=== PATIENT | male | born 1995 | race Caucasian/White ===

== ENCOUNTER 2019-03-29 18:33 | Observation (INO) ==
[2019-03-29] MEDS ORDERED: KETOROLAC TROMETHAMINE 15 MG/ML VIAL IV STA (18:53)
[2019-03-29] MEDS ORDERED: METOCLOPRAMIDE HCL INJ 5 MG/ML 2 ML VIAL IV STA (18:53)
[2019-03-29] MEDS ORDERED: FAMOTIDINE 20MG IV PUSH 20 MG/5 ML SYR IV STA (18:53)
[2019-03-29 18:58] LABS: Basophils # (auto) 0.02 K/uL (0-0.2); Basophils % (auto) 0.2 %; Eosinophils # (auto) 0.01 K/uL (0-0.5); Eosinophils % (auto) 0.1 %; Hematocrit (blood only) 44.7 % (42-52); Hemoglobin 15.7 g/dL (14.0-18.0); Immature Granulocytes # (auto) 0.02 K/uL (0.00-0.02); Immature Granulocytes % (auto) 0.2 %; Lymphocytes # (auto) 1.34 K/uL (1.2-3.4); Lymphocytes % (auto) 11.9 %; Mean Corpuscular Hemoglobin 29.5 pg (25-34); Mean Corpuscular Hgb Conc 35.1 g/dL (32-36); Mean Corpuscular Volume 83.9 fL (80-100); Mean Platelet Volume 10.9 fL (7.4-10.4); Monocytes # (auto) 0.57 K/uL (0.11-0.59); Monocytes % (auto) 5.1 %; Neutrophils # (auto) 9.28 K/uL (1.4-6.5); Neutrophils % (auto) 82.5 %; Platelet Count 285 K/uL (130-400); RDW Coefficient of Variation 12.7 % (11.5-14.5); RDW Standard Deviation 38.2 fL (36.4-46.3); Red Blood Count 5.33 M/uL (4.7-6.1); White Blood Count 11.24 K/uL (4.8-10.8)
[2019-03-29] MEDS ORDERED: SODIUM CHLORIDE 0.9% 1000ML 1,000 ML IV SCH (19:00)
[2019-03-29 19:10] LABS: INR 1.1 (0.9-1.1)
[2019-03-29 19:15] LABS: Albumin Level 4.9 gm/dl (3.4-5.0); BUN Creatinine Ratio 10.9 (10-20); Calcium 9.9 mg/dl (8.5-10.1); Creatinine Clr Calc Pharmacy 84.9 ml/min; Est GFR (African American) 83.7; Est GFR (Non-African American) 72.2; Magnesium 1.7 mg/dl (1.8-2.4)
[2019-03-29 19:18] LABS: Albumin Globulin Ratio 1.3 (0.9-2); Bilirubin,Total 0.8 mg/dl (0.2-1); Globulin 3.7 gm/dl (2.5-4.0); Total Protein 8.6 gm/dl (6.4-8.2)
[2019-03-29] MEDS ORDERED: POTASSIUM CHLORIDE / WTR 10 MEQ/100 ML PLCT IV ONE ×2 (19:42→21:59)
[2019-03-29] MEDS ORDERED: MAGNESIUM SULFATE / D5W 1 GM/100 ML BAG IV ONE ×2 (19:42→21:59)
[2019-03-29] MEDS ORDERED: METOCLOPRAMIDE HCL INJ 5 MG/ML 2 ML VIAL IM STA (20:28)
[2019-03-29] MEDS ORDERED: SODIUM CHLORIDE 0.9% 1000ML 1,000 ML IV ONE (21:59)
[2019-03-29] MEDS ORDERED: ONDANSETRON INJ 2 MG/ML 2 ML VIAL IV STA (21:59)
[2019-03-30] MEDS ORDERED: PROCHLORPERAZINE 2 ML IV ONE (00:34)
[2019-03-30] MEDS ORDERED: LACTATED RINGER'S 1,000 ML IV ONE (00:34)
[2019-03-30] MEDS ORDERED: POTASSIUM CHLORIDE / WTR 10 MEQ/100 ML PLCT IV ONE (00:35)
[2019-03-30] MEDS ORDERED: MAGNESIUM SULFATE / D5W 1 GM/100 ML BAG IV ONE (00:35)
--- NOTE | 2019-03-30 00:37 | Emergency Department Note ---
Entered by Camille Stanley acting as a scribe for Stanislaw Hamilton M.D. History of Present Illness General Chief complaint: Vomiting Stated complaint: WITHDRAWAL Time Seen by Provider: 03/29/19 18:47 Source: patient Limitations: no limitations History of Present Illness Onset (ago): hour(s) (this morning) Location: abdomen Pain Consistency: + other (persistent) Maximum Pain Intensity: 10 Quality: + other (vomiting) Relieved By: + none Associated symptoms: + other (abdominal pain) The patient is a 23 year old male who presents to the Emergency Room with complaints of persistent vomiting that began this morning. He states that he is going through withdrawal, noting that he last had opioids yesterday at 19:00. The patient reports that he began rehabilitation at [facility] yesterday. He complains of vomiting bile and generalized abdominal pain. The patient notes that Phenergan, Zofran, and Compazine provided no relief. Allergies Allergy/AdvReac Type Severity Reaction Status Date / Time No Known Allergies Allergy Unverified 03/29/19 19:33 Past Med/Surg History Medical History Opioid abuse Social History Feels Safe at Home: Yes Smoking Status: Current every day smoker Review of Systems See HPI for pertinent positives & negatives. and A total of 10 systems reviewed and were otherwise negative Physical Exam Vital Signs Vital Signs - 24 hr 03/29/19 18:35 03/29/19 19:03 03/29/19 20:01 Temperature 36.9 C Temperature Source Oral Sepsis Recent Fever Within 48 Hours No Sepsis New/Unexplained Change in Mental Status No Sepsis Action Taken by Nursing No Action Required Pulse Rate 88 Pulse Rate [Finger] 54 L Pulse Rhythm [Finger] Pulse Strength [Finger] Respiratory Rate 20 14 Respiratory Effort / Characteristics Non-Labored Spontaneous Respiratory Depth Normal Respiratory Pattern Regular Blood Pressure 126/86 Blood Pressure [Left Arm] 131/71 Blood Pressure Mean 99 Blood Pressure Mean [Left Arm] 91 Blood Pressure Position Standing Blood Pressure Position [Left Arm] Pulse Oximetry 99 98 Oxygen Delivery Method Room Air Room Air Room Air 03/29/19 21:56 03/29/19 23:44 Temperature Temperature Source Sepsis Recent Fever Within 48 Hours Sepsis New/Unexplained Change in Mental Status Sepsis Action Taken by Nursing Pulse Rate Pulse Rate [Finger] 54 L 63 Pulse Rhythm [Finger] Regular Pulse Strength [Finger] Normal Respiratory Rate 24 16 Respiratory Effort / Characteristics Non-Labored Spontaneous Respiratory Depth Normal Respiratory Pattern Blood Pressure Blood Pressure [Left Arm] 141/71 H 160/84 H Blood Pressure Mean Blood Pressure Mean [Left Arm] 94 109 Blood Pressure Position Blood Pressure Position [Left Arm] Lying Pulse Oximetry 99 96 Oxygen Delivery Method Room Air Room Air GENERAL: Awake, alert, uncomfortable-appearing holding abdomen HENT: Normocephalic, atraumatic. EYES: Normal conjunctiva. Sclera non-icteric. NECK: Supple. No nuchal rigidity. RESPIRATORY: Clear to auscultation. No wheezes. Normal respiratory effort. CARDIAC: Normal rate. Normal rhythm. Extremities warm and well perfused. GI: Soft, non-distended. No tenderness to palpation. No rebound or guarding. No masses. RECTAL: Deferred. MUSCULOSKELETAL: Atraumatic. Chest examination reveals no tenderness. LOWER EXTREMITIES: Calves are equal size bilaterally and non-tender. No edema NEURO: Normal sensorium. No sensory or motor deficits noted. No facial droop. SKIN: Warm and dry. No rash or jaundice noted. Course 1850: The patient was evaluated in room C03. A complete history and physical exam was performed. 2023: I updated the patient on the results. 3: The patient is doing a PO trial. 0002: The patient states that he feels improved and he would like to return to [facility]. 0034: The patient began vomiting again. 0040: I spoke with Dr. Sam, [facility] hospitalist, about the patient's case. He will further evaluate the patient. Administered Medications Lactated Ringer's (Lr) 1,000 mls @ 999 mls/hr IV .Q1H1M ONE Stop: 03/30/19 01:34 Last Admin: 03/30/19 00:44 Dose: 999 mls/hr Documented by: [id number] Magnesium Sulfate/Dextrose (Magnesium Sulfate / D5w) 1 gm in 100 mls @ 100 mls/hr IV ONE ONE Stop: 03/30/19 01:34 Last Admin: 03/30/19 00:44 Dose: 100 mls/hr Documented by: [id number] Discontinued Medications Famotidine (Pepcid 20mg Iv Push) 20 mg in 5 mls @ 2.5 mls/min IV NOW STA Stop: 03/29/19 18:54 Last Admin: 03/29/19 19:02 Dose: 2.5 mls/min Documented by: [id number] Sodium Chloride (Nss 1000ml) 1,000 mls @ 999 mls/hr IV .Q1H1M UBALDO Stop: 03/29/19 20:00 Last Infusion: 03/29/19 20:03 Dose: 0 mls/hr Documented by: [id number] Admin: 03/29/19 19:02 Dose: 999 mls/hr Documented by: [id number] Potassium Chloride (K Guru / Wtr) 10 meq in 100 mls @ 100 mls/hr IV ONE ONE Stop: 03/29/19 20:41 Last Infusion: 03/29/19 21:05 Dose: 0 mls/hr Documented by: [id number] Admin: 03/29/19 20:05 Dose: 100 mls/hr Documented by: [id number] Magnesium Sulfate/Dextrose (Magnesium Sulfate / D5w) 1 gm in 100 mls @ 100 mls/hr IV ONE ONE Stop: 03/29/19 20:41 Last Infusion: 03/29/19 21:05 Dose: 0 mls/hr Documented by: [id number] Admin: 03/29/19 20:05 Dose: 100 mls/hr Documented by: [id number] Magnesium Sulfate/Dextrose (Magnesium Sulfate / D5w) 1 gm in 100 mls @ 100 mls/hr IV ONE ONE Stop: 03/29/19 22:58 Last Infusion: 03/29/19 23:42 Dose: 0 mls/hr Documented by: [id number] Admin: 03/29/19 22:35 Dose: 100 mls/hr Documented by: [id number] Potassium Chloride (K Guru / Wtr) 10 meq in 100 mls @ 100 mls/hr IV ONE ONE Stop: 03/29/19 22:58 Last Infusion: 03/29/19 23:41 Dose: 0 mls/hr Documented by: [id number] Admin: 03/29/19 22:35 Dose: 100 mls/hr Documented by: [id number] Sodium Chloride (Nss 1000ml) 1,000 mls @ 999 mls/hr IV .Q1H1M ONE Stop: 03/29/19 22:59 Last Infusion: 03/29/19 23:42 Dose: 0 mls/hr Documented by: [id number] Admin: 03/29/19 22:30 Dose: 999 mls/hr Documented by: [id number] Prochlorperazine (Compazine) 2 mls @ 1 mls/min IV ONE ONE Stop: 03/30/19 00:35 Last Admin: 03/30/19 00:44 Dose: 1 mls/min Documented by: [id number] Ketorolac Tromethamine (Toradol) 15 mg IV NOW STA Stop: 03/29/19 18:54 Last Admin: 03/29/19 19:02 Dose: 15 mg Documented by: [id number] Metoclopramide HCl (Reglan) 10 mg IV NOW STA Stop: 03/29/19 18:54 Last Admin: 03/29/19 19:02 Dose: 10 mg Documented by: [id number] Metoclopramide HCl (Reglan) 10 mg IM NOW STA Stop: 03/29/19 20:29 Last Admin: 03/29/19 20:39 Dose: 10 mg Documented by: [id number] Ondansetron HCl (Zofran) 4 mg IV NOW STA Stop: 03/29/19 22:00 Last Admin: 03/29/19 22:31 Dose: 4 mg Documented by: [id number] Medical Decision Making Differential Diagnosis Etiologies such as gastroenteritis, food borne illness, infections, appendicitis, diverticulitis, inflammatory bowel disease, obstruction, GI bleed, biliary pathology, cardiac process, intracranial process, as well as others were entertained. Medical Records Attestation: I reviewed the patient's medical records. Home Medications Current Medication List: was personally reviewed by me Laboratory Data Attestation: I reviewed the patient's lab results. Result diagrams: 03/29/19 18:51 03/29/19 18:51 Lab Results 03/29/19 03/29/19 03/29/19 Range/Units 18:51 18:51 18:51 WBC 11.24 H (4.8-10.8) K/uL RBC 5.33 (4.7-6.1) M/uL Hgb 15.7 (14.0-18.0) g/dL Hct 44.7 (42-52) % MCV 83.9 (80-100) fL MCH 29.5 (25-34) pg MCHC 35.1 (32-36) g/dL RDW Std Deviation 38.2 (36.4-46.3) fL RDW Coeff of Ada 12.7 (11.5-14.5) % Plt Count 285 (130-400) K/uL MPV 10.9 H (7.4-10.4) fL Immature Gran % (Auto) 0.2 % Neut % (Auto) 82.5 % Lymph % (Auto) 11.9 % [place] % (Auto) 5.1 % Eos % (Auto) 0.1 % Baso % (Auto) 0.2 % Immature Gran # (Auto) 0.02 (0.00-0.02) K/uL Neut # (Auto) 9.28 H (1.4-6.5) K/uL Lymph # (Auto) 1.34 (1.2-3.4) K/uL [place] # (Auto) 0.57 (0.11-0.59) K/uL Eos # (Auto) 0.01 (0-0.5) K/uL Baso # (Auto) 0.02 (0-0.2) K/uL PT 11.0 (9.0-12.0) Seconds INR 1.1 (0.9-1.1) Sodium 139 (136-145) mmol/L Potassium 3.0 L (3.5-5.1) mmol/L Chloride 103 (98-107) mmol/L Carbon Dioxide 27 (21-32) mmol/L Anion Gap 9.0 (3-11) BUN 15 (7-18) mg/dl Creatinine 1.37 (0.6-1.4) mg/dl Est Cr Clr Drug Dosing 84.9 ml/min Est GFR ( Amer) 83.7 Est GFR (Non-Af Amer) 72.2 BUN/Creatinine Ratio 10.9 (10-20) Glucose 117 H (70-99) mg/dl Calcium 9.9 (8.5-10.1) mg/dl Magnesium 1.7 L (1.8-2.4) mg/dl Total Bilirubin 0.8 (0.2-1) mg/dl AST 10 L (15-37) U/L ALT 17 (12-78) U/L Alkaline Phosphatase 83 (45-117) U/L Total Protein 8.6 H (6.4-8.2) gm/dl Albumin 4.9 (3.4-5.0) gm/dl Globulin 3.7 (2.5-4.0) gm/dl Albumin/Globulin Ratio 1.3 (0.9-2) Lipase 128 (73-393) U/L ECG Data Attestation: I personally reviewed and interpreted this ECG as follows: Indication: + vomiting Rate (beats per minute): 61 Rhythm: + sinus rhythm ECG Findings: + Other (no ectopy, no ST elevation, no ST depression, incomplete RBBB, QTC is normal) Blood Pressure Blood Pressure Findings: Elevated blood pressure Blood Pressure Disposition: further management by hospitalist LATOYA Narrative Patient is a patient is a 23-year-old gentleman from [facility] relocated overnight for detox from opioids at [facility]. Has explained severe abdominal pain with nausea and vomiting today. Last illicit drug use of fentanyl 7 PM yesterday evening. No trauma reported. Vomiting multiple times refractory to combinations of Compazine Phenergan and Zofran at the facility. Pain but no significant abdominal tenderness. Patient has received some amount of Suboxone there but he says is having difficulty keeping anything down. Mild been reported with vomiting. Patient given IV fluids as well as Reglan and Pepcid. EKG was obtained to look for interval abnormalities as well as basic laboratory studies look for any possible leukocytosis, kidney dysfunction, left foot abnormality, hepatitis, or pancreatitis. No evidence of acute hepatitis or pancreatitis. Hypokalemia and hypomagnesemia noted. IV repletion ordered. Leukocytosis of 11.2 is likely stress related. No evidence of significant renal dysfunction. Oral trial attempted after Zofran and Reglan patient then vomited up this water. Given additional Zofran. Patient's pain and nausea have somewhat improved at this point. Again I doubt intra-abdominal complications appendicitis or cholecystitis or perforation. On reassessment after more than 5 hours here the patient had improvement of his symptoms no longer any abdominal pain or nausea tolerated oral intake with liquids here. Discussed with him and he felt comfortable with discharge back to [facility] for continued rehab ther apies. Will send with a prescription for additional potassium supplementation. He does have orders for withdrawal medications at the facility and antiemetics that they may continue to utilize. Patient was in agreement with this plan. Over the next 45 minutes to hour the patient then began to vomit again up the water he just taken. Given additional antiemetics and given his failure to maintain oral intake feel that admission for continued antiemetic therapy and hydration is indicated at this time. Hospitalist was contacted. Impression & Plan Nausea & vomiting, Acute hypokalemia, Hypomagnesemia, Withdrawal from opioids Discharge Plan Visit Data Chief Complaint: Vomiting Stated Complaint: WITHDRAWAL ED Provider: Stanislaw Hamilton Discharge Problem: Nausea & vomiting, Acute hypokalemia, Hypomagnesemia, Withdrawal from opioids Patient Disposition: Being Evaluated by Hospitalist Condition: Good Discharge Instructions Keny/Other Patient Handouts: ED Withdrawal Narcotic Forms Stand Alone Forms: My [facility] Referrals Referrals: PCP,NO [Primary Care Provider] - Discharge Problem: Nausea & vomiting Qualifiers: Vomiting type: unspecified Vomiting Intractability: non-intractable Qualified Code(s): R11.2 - Nausea with vomiting, unspecified The scribe's documentation has been prepared under my direction and personally reviewed by me in its entirety. I confirm that the note above accurately reflects all work, treatment, procedures, and medical decision making performed by me.
[2019-03-30] MEDS ORDERED: ACETAMINOPHEN 325 MG TAB PO PRN (02:21)
--- NOTE | 2019-03-30 03:17 | History & Physical Report ---
Date of Service March 30, 2019 Assessment & Plan (1) Acute hypokalemia: Replaced in the ED Continue with IVF with potassium overnight re-check level in am (2) Hypomagnesemia: Replaced in the ED Re-check level in the am. (3) Nausea & vomiting: Ordered IV Phenergan and IV Zofran Continue IVF Can start with clear liquids when feeling better then advance to regular as tolerated. (4) Withdrawal from opioids: I added Clonidine When stable from electrolytes and tolerating orals, may be discharged back to [facility]. History of Present Illness 23 y/o male presented to the ED from [facility] with persistent vomiting from opioid withdrawal. He was given oral therapies at the facility with no relief. He has diffuse abdominal pain. He declines having chest pain, SOB, cough, F/C, or diarrhea. He is 30 hours from his last use. Primary Care Provider: NO PCP Allergies Allergy/AdvReac Type Severity Reaction Status Date / Time No Known Allergies Allergy Unverified 03/29/19 19:33 Past Med/Surg History Medical History Opioid abuse Social History Preferred Language: Finnish Communication Ability: Effective Glue Bone Crusher Required: No Beliefs That Will Affect Care: None Current Living Situation: Rehab Feels Safe at Home: Yes Safety Concerns: Feels Safe At This Time Smoking Status: Current every day smoker Tobacco Type: cigarettes ; Cigarettes Per Day: 20 ; Tobacco Cessation Education Requested by Patient: No Hx Alcohol Use: No Hx Substance Use: Yes substance use type: heroin and other Substance Use Type Other:: fentanyl Last Used Substance: Days (ago) Last Used Substance Other:: 1 day ago Review of Systems Review of Systems: All systems reviewed & are unremarkable except as noted in HPI & below Physical Exam Physical Exam: General- adult male in mild distress from withdrawal symptoms. Head- atraumatic Eyes- PERRL, EOMI, anicteric ENT- oropharynx clear Neck- supple, no JVD, no adenopathy, no thyromegaly. Lungs- CTA b/l no R/R/W Heart- regular rhythm; no murmur, no gallop, no rub appreciated Abdomen- normal bowel sounds, soft, nontender. 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 Skin- warm & dry Results & Data Vital Signs (Past 12 Hours) Vital Signs Temp Pulse Pulse Resp BP BP Pulse Ox 03/30/19 02:10 37.6 C H 66 16 133/74 99 03/30/19 01:55 50 L 16 151/72 H 96 03/29/19 23:44 63 16 160/84 H 96 03/29/19 21:56 54 L 24 141/71 H 99 03/29/19 20:01 54 L 14 131/71 98 03/29/19 18:35 36.9 C 88 20 126/86 99 Laboratory Results Laboratory Results WBC 11.24 K/uL (4.8-10.8) H 03/29/19 18:51 RBC 5.33 M/uL (4.7-6.1) 03/29/19 18:51 Hgb 15.7 g/dL (14.0-18.0) 03/29/19 18:51 Hct 44.7 % (42-52) 03/29/19 18:51 MCV 83.9 fL (80-100) 03/29/19 18:51 MCH 29.5 pg (25-34) 03/29/19 18:51 MCHC 35.1 g/dL (32-36) 03/29/19 18:51 RDW Std Deviation 38.2 fL (36.4-46.3) 03/29/19 18:51 RDW Coeff of Ada 12.7 % (11.5-14.5) 03/29/19 18:51 Plt Count 285 K/uL (130-400) 03/29/19 18:51 MPV 10.9 fL (7.4-10.4) H 03/29/19 18:51 Immature Gran % (Auto) 0.2 % 03/29/19 18:51 Neut % (Auto) 82.5 % 03/29/19 18:51 Lymph % (Auto) 11.9 % 03/29/19 18:51 [place] % (Auto) 5.1 % 03/29/19 18:51 Eos % (Auto) 0.1 % 03/29/19 18:51 Baso % (Auto) 0.2 % 03/29/19 18:51 Immature Gran # (Auto) 0.02 K/uL (0.00-0.02) 03/29/19 18:51 Neut # (Auto) 9.28 K/uL (1.4-6.5) H 03/29/19 18:51 Lymph # (Auto) 1.34 K/uL (1.2-3.4) 03/29/19 18:51 [place] # (Auto) 0.57 K/uL (0.11-0.59) 03/29/19 18:51 Eos # (Auto) 0.01 K/uL (0-0.5) 03/29/19 18:51 Baso # (Auto) 0.02 K/uL (0-0.2) 03/29/19 18:51 PT 11.0 Seconds (9.0-12.0) 03/29/19 18:51 INR 1.1 (0.9-1.1) 03/29/19 18:51 Sodium 139 mmol/L (136-145) 03/29/19 18:51 Potassium 3.0 mmol/L (3.5-5.1) L 03/29/19 18:51 Chloride 103 mmol/L (98-107) 03/29/19 18:51 Carbon Dioxide 27 mmol/L (21-32) 03/29/19 18:51 Anion Gap 9.0 (3-11) 03/29/19 18:51 BUN 15 mg/dl (7-18) 03/29/19 18:51 Creatinine 1.37 mg/dl (0.6-1.4) 03/29/19 18:51 Est Cr Clr Drug Dosing 84.9 ml/min 03/29/19 18:51 Est GFR ( Amer) 83.7 03/29/19 18:51 Est GFR (Non-Af Amer) 72.2 03/29/19 18:51 BUN/Creatinine Ratio 10.9 (10-20) 03/29/19 18:51 Glucose 117 mg/dl (70-99) H 03/29/19 18:51 Calcium 9.9 mg/dl (8.5-10.1) 03/29/19 18:51 Magnesium 1.7 mg/dl (1.8-2.4) L 03/29/19 18:51 Total Bilirubin 0.8 mg/dl (0.2-1) 03/29/19 18:51 AST 10 U/L (15-37) L 03/29/19 18:51 ALT 17 U/L (12-78) 03/29/19 18:51 Alkaline Phosphatase 83 U/L (45-117) 03/29/19 18:51 Total Protein 8.6 gm/dl (6.4-8.2) H 03/29/19 18:51 Albumin 4.9 gm/dl (3.4-5.0) 03/29/19 18:51 Globulin 3.7 gm/dl (2.5-4.0) 03/29/19 18:51 Albumin/Globulin Ratio 1.3 (0.9-2) 03/29/19 18:51 Lipase 128 U/L (73-393) 03/29/19 18:51 Code Status & VTE Plan VTE Prophylaxis Plan VTE Prophylaxis will be ordered: Yes PG Care Time/CCT Total # of Minutes Spent Total Time Spent with Patient: Total time spent is greater than 50% in coordination of care (as documented) at patient's floor/unit and/or counseling patient: (1) Nausea & vomiting Vomiting Intractability: non-intractable Vomiting type: unspecified Qualified Code(s): R11.2 - Nausea with vomiting, unspecified
[2019-03-30 03:26] LABS: Appearance Urine Turbid (Clear); Bacteria Urine Automated Negative (Negative); Bilirubin Urine Negative (Negative); Blood Urine Negative (Negative); Color Urine Yellow; Epithelial Cell Urine Auto 20-30 /lpf (0-5); Glucose Urine UA Negative (Negative); Ketones Urine 1+ (Negative); Leukocyte Esterase Urine Trace (Negative); Nitrite Urine Negative (Negative); Protein Urine Negative (Negative); Specific Gravity Urine 1.024 (1.000-1.030); Urobilinogen Urine Negative (Negative)
[2019-03-30] MEDS: SODIUM CHLOR 0.45% + 20MEQ KCL 20 MEQ/1,000 ML BAG IV SCH ×3 (03:26→18:34)
[2019-03-30 03:46] LABS: Amphetamines+Metham, Urine Neg (Neg); Barbiturates, Urine Neg (Neg); Benzodiazepine, Urine Pos (Neg); Cocaine, Urine Pos (Neg); MDMA (Ecstacy), Urine Neg (Neg); Methadone, Urine Neg (Neg); Opiate, Urine Pos (Neg); Phencyclidine, Urine Neg (Neg)
[2019-03-30] MEDS: ONDANSETRON INJ 2 MG/ML 2 ML VIAL IV PRN ×2 (05:28→13:12)
[2019-03-30 07:24] LABS: Hematocrit (blood only) 41.4 % (42-52); Hemoglobin 14.6 g/dL (14.0-18.0); Mean Corpuscular Hemoglobin 29.7 pg (25-34); Mean Corpuscular Hgb Conc 35.3 g/dL (32-36); Mean Corpuscular Volume 84.1 fL (80-100); Mean Platelet Volume 11.1 fL (7.4-10.4); Platelet Count 270 K/uL (130-400); RDW Standard Deviation 39.4 fL (36.4-46.3); Red Blood Count 4.92 M/uL (4.7-6.1); White Blood Count 14.18 K/uL (4.8-10.8)
[2019-03-30] MEDS: PROMETHAZINE HCL 25 MG in SODIUM CHLORIDE 0.9% 50 ML IV PRN (07:26)
[2019-03-30 08:02] LABS: BUN Creatinine Ratio 13.2 (10-20); Creatinine Clr Calc Pharmacy 123.2 ml/min; Est GFR (African American) 130.2; Est GFR (Non-African American) 112.4; Magnesium 2.2 mg/dl (1.8-2.4); Potassium 3.5 mmol/L (3.5-5.1)
[2019-03-30] MEDS ORDERED: FAMOTIDINE 10 MG/ML 2ML VIAL IV SCH (09:00)
[2019-03-30] MEDS: KETOROLAC TROMETHAMINE 15 MG/ML VIAL IV PRN ×2 (09:27→23:45)
[2019-03-30] MEDS: ENOXAPARIN INJ 40 MG/0.4 ML SYR SQ SCH (09:28)
[2019-03-30] MEDS: cloNIDine HCl 0.1 MG TAB PO SCH ×4 (09:28→19:55)
[2019-03-30] MEDS: FAMOTIDINE 20 MG in SYRINGE 3 ML IV SCH ×2 (10:12→21:31)
[2019-03-30] MEDS: PROCHLORPERAZINE 10 MG in SYRINGE 8 ML IV PRN (11:50)
--- NOTE | 2019-03-30 13:50 | Hospitalist Progress Note ---
Date of Service March 30, 2019 Assessment & Plan (1) Acute hypokalemia: Resolving. Potassium is 3.5 now. Continue replenishment with NSS 20 meq K. Continue monitoring potassium (2) Hypomagnesemia: Resolved (3) Nausea & vomiting: Continue IV Phenergan, IV Zofran, and Compazine. Supportive care Continue IVF Advance diet as tolerated when patient ready (4) Withdrawal from opioids: Continue clonidine When stable from electrolytes and tolerating orals, may be discharged back to [facility]. Consult pain management Subjective Pt seen and examined at the bedside. Patient continues to have nausea and vomiting despite of having Zofran and Phenergan given intermittently. Compazine is started as well. Patient said that he was using Suboxone before and that helps him to alleviate the symptoms of opiate withdrawal. Patient denies headache, fever, chills, chest pain, dysuria hematuria. Review of Systems Review of Systems: All systems reviewed & are unremarkable except as noted in HPI & below Physical Exam Constitutional: WD/WN, vitals as above well developed and + acute distress (Vomiting) Eyes: PERRL, conjunctivae normal, anicteric sclerae ENMT: external ear and nose normal, oropharynx normal Respiratory: normal respiratory effort, lungs clear to auscultation Cardiovascular: RRR, no murmur, no edema Gastrointestinal (Abdomen): normal bowel sounds, soft, nontender, no hepatosplenomegaly Musculoskeletal: no cyanosis or clubbing, extremities motor strength 5/5 Skin: no rashes, warm and dry Neurologic: patellar DTR's 2+ bilat, sensation intact Psychiatric: A+Ox3, euthymic affect Lymphatic: no cervical or axillary lymphadenopathy Results & Data Vital Signs (Past 12 Hours) Vital Signs Temp Pulse Resp BP Pulse Ox 03/30/19 12:02 78 118/66 03/30/19 09:12 57 L 03/30/19 07:26 37.6 C H 41 L 18 169/82 H 97 03/30/19 02:10 37.6 C H 66 16 133/74 99 03/30/19 01:55 50 L 16 151/72 H 96 PG Care Time/CCT Total # of Minutes Spent Total Time Spent with Patient: Total time spent is greater than 50% in coordination of care (as documented) at patient's floor/unit and/or counseling patient: (1) Nausea & vomiting Vomiting Intractability: non-intractable Vomiting type: unspecified Qualified Code(s): R11.2 - Nausea with vomiting, unspecified
[2019-03-31 00:11] VITALS: TEMP 97.9
[2019-03-31] MEDS: SODIUM CHLOR 0.45% + 20MEQ KCL 20 MEQ/1,000 ML BAG IV SCH ×2 (01:50→10:14)
[2019-03-31] MEDS: KETOROLAC TROMETHAMINE 15 MG/ML VIAL IV PRN (05:50)
[2019-03-31] MEDS: ONDANSETRON INJ 2 MG/ML 2 ML VIAL IV PRN (07:31)
[2019-03-31 08:19] VITALS: O2SAT 96
[2019-03-31] MEDS: PROMETHAZINE HCL 25 MG in SODIUM CHLORIDE 0.9% 50 ML IV PRN (08:36)
[2019-03-31 09:28] LABS: Basophils # (auto) 0.01 K/uL (0-0.2); Basophils % (auto) 0.1 %; Eosinophils # (auto) 0.03 K/uL (0-0.5); Eosinophils % (auto) 0.4 %; Hemoglobin 13.8 g/dL (14.0-18.0); Immature Granulocytes # (auto) 0.01 K/uL (0.00-0.02); Immature Granulocytes % (auto) 0.1 %; Lymphocytes # (auto) 1.95 K/uL (1.2-3.4); Mean Corpuscular Hemoglobin 29.3 pg (25-34); Mean Corpuscular Volume 84.9 fL (80-100); Mean Platelet Volume 10.5 fL (7.4-10.4); Monocytes # (auto) 0.66 K/uL (0.11-0.59); Monocytes % (auto) 8.1 %; Neutrophils # (auto) 5.46 K/uL (1.4-6.5); Neutrophils % (auto) 67.3 %; Platelet Count 221 K/uL (130-400); RDW Coefficient of Variation 12.9 % (11.5-14.5); Red Blood Count 4.71 M/uL (4.7-6.1); White Blood Count 8.12 K/uL (4.8-10.8)
[2019-03-31 09:33] LABS: Mean Corpuscular Hgb Conc 34.5 g/dL (32-36)
[2019-03-31] MEDS ORDERED: BUPRENORPHINE/NALOXONE 2/0.5MG 1 TAB PO SCH (09:45)
[2019-03-31 09:46] LABS: Albumin Level 3.8 gm/dl (3.4-5.0); BUN Creatinine Ratio 12.3 (10-20); Calcium 8.7 mg/dl (8.5-10.1); Creatinine Clr Calc Pharmacy 96.7 ml/min; Est GFR (African American) 97.2; Est GFR (Non-African American) 83.9
[2019-03-31] MEDS: PROCHLORPERAZINE 10 MG in SYRINGE 8 ML IV PRN (09:51)
[2019-03-31] MEDS: FAMOTIDINE 20 MG in SYRINGE 3 ML IV SCH (09:52)
[2019-03-31 09:53] LABS: Albumin Globulin Ratio 1.3 (0.9-2); Bilirubin,Total 1.1 mg/dl (0.2-1); Total Protein 6.8 gm/dl (6.4-8.2)
[2019-03-31] MEDS: cloNIDine HCl 0.1 MG TAB PO SCH ×2 (10:06→12:24)
--- NOTE | 2019-03-31 10:36 | XRay Report ---
XR chest 1V portable HISTORY: 23 years-old Male Rule out hemopneumothorax. Status post rib blocks 7, 8 and 9 left side s tatus post left-sided rib nerve blocks. COMPARISON: None available TECHNIQUE: Portable AP view of the chest FINDINGS: Cardiomediastinal and hilar silhouettes are within normal limits. There is no pneumothorax, pleural e ffusion, focal airspace consolidation or overt pulmonary edema. Bones appear normal. No opaque foreig n body. IMPRESSION: No postprocedural pneumothorax. The above report was generated using voice recognition software. It may contain grammatical, syntax o r spelling errors. Electronically signed by: Chito Bowman M.D. 03/31/2019 10:34 AM
[2019-03-31 12:23] VITALS: BP 147/77; PULSE 71
[2019-03-31] MEDS: ENOXAPARIN INJ 40 MG/0.4 ML SYR SQ SCH (12:23)
--- NOTE | 2019-03-31 13:24 | Hospitalist Progress Note ---
Date of Service March 31, 2019 Assessment & Plan (1) Acute hypokalemia: Resolved potassium 4 now (2) Hypomagnesemia: Resolved (3) Nausea & vomiting: Resolved after giving Suboxone. (4) Withdrawal from opioids: Improved after giving a dose of Suboxone. We accessed [facility] and Dr.Gregory Munoz located in [address] [place] [address] at [facility] with phone #[phone] prescribed on March 29, 2019 a dose of 3.14 mg of Suboxone for 7 days supply. Patient was advised to follow-up with Dr. Munoz as soon as possible after this discharge. No medication was given on the discharge. No opiates or narcotics were given to patient on the discharge. Subjective Pt seen and examined at the bedside. Patient continues to have nausea and vomiting despite of having Zofran and Phenergan given intermittently. Compazine was given as well but did not help much with nausea and vomiting. Patient said that he is planning to leave [facility] to go to his rehab to obtain Suboxone. The case was discussed with pain management to Dr. Mcgovern and be provided patient with Suboxone while in the hospital but recommended him to go to the rehab as soon as possible and continue rehabilitation from opioid withdrawal. Patient denies headache, fever, chills, chest pain, dysuria hematuria. After receiving Suboxone patient felt better and he stated that he would continue with the rehab and he would like to be discharged home. We accessed [facility] and Dr.Gregory Munoz located in [address] [place] [address] at [facility] with phone #[phone] prescribed on March 29, 2019 a dose of 3.14 mg of Suboxone for 7 days supply. Patient was advised to follow-up with Dr. Munoz as soon as possible after this discharge. No medication was given on the discharge. No opiates or narcotics were given to patient on the discharge. Review of Systems Review of Systems: All systems reviewed & are unremarkable except as noted in HPI & below Physical Exam Constitutional: WD/WN, vitals as above well developed and + acute distress (Vomiting) Eyes: PERRL, conjunctivae normal, anicteric sclerae ENMT: external ear and nose normal, oropharynx normal Respiratory: normal respiratory effort, lungs clear to auscultation Cardiovascular: RRR, no murmur, no edema Gastrointestinal (Abdomen): normal bowel sounds, soft, nontender, no hepatosplenomegaly Musculoskeletal: no cyanosis or clubbing, extremities motor strength 5/5 Skin: no rashes, warm and dry Neurologic: patellar DTR's 2+ bilat, sensation intact Psychiatric: A+Ox3, euthymic affect Lymphatic: no cervical or axillary lymphadenopathy Results & Data Vital Signs (Past 12 Hours) Vital Signs Temp Pulse Resp BP Pulse Ox 03/31/19 12:22 71 147/77 H 03/31/19 08:00 36.6 C 46 L 18 100/51 L 96 PG Care Time/CCT Total # of Minutes Spent Total Time Spent with Patient: Total time spent is greater than 50% in coordination of care (as documented) at patient's floor/unit and/or counseling patient: (1) Nausea & vomiting Vomiting Intractability: non-intractable Vomiting type: unspecified Qualified Code(s): R11.2 - Nausea with vomiting, unspecified
--- NOTE | 2019-03-31 16:37 | Discharge Summary ---
Date of Service March 31, 2019 Admission HPI Per Admitting Provider 23 y/o male presented to the ED from [facility] with persistent vomiting from opioid withdrawal. He was given oral therapies at the facility with no relief. He has diffuse abdominal pain. He declines having chest pain, SOB, cough, F/C, or diarrhea. He is 30 hours from his last use. Primary Care Provider: NO PCP Admission Exam Per Admitting Provider General- adult male in mild distress from withdrawal symptoms. Head- atraumatic Eyes- PERRL, EOMI, anicteric ENT- oropharynx clear Neck- supple, no JVD, no adenopathy, no thyromegaly. Lungs- CTA b/l no R/R/W Heart- regular rhythm; no murmur, no gallop, no rub appreciated Abdomen- normal bowel sounds, soft, nontender. 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 Skin- warm & dry Principal Diagnosis none Discharge Exam Constitutional WD/WN, vitals as above well developed and + acute distress (Vomiting) Eyes PERRL, conjunctivae normal, anicteric sclerae ENMT external ear and nose normal, oropharynx normal Respiratory normal respiratory effort, lungs clear to auscultation Cardiovascular RRR, no murmur, no edema Gastrointestinal (Abdomen) normal bowel sounds, soft, nontender, no hepatosplenomegaly Musculoskeletal no cyanosis or clubbing, extremities motor strength 5/5 Skin no rashes, warm and dry Neurologic patellar DTR's 2+ bilat, sensation intact Psychiatric A+Ox3, euthymic affect Lymphatic no cervical or axillary lymphadenopathy Discharge Data Allergies Allergy/AdvReac Type Severity Reaction Status Date / Time No Known Allergies Allergy Unverified 03/29/19 19:33 Consultations 03/30/19 00:41 ED Decision to Admit Stat Hospital Course (1) Acute hypokalemia: Resolved potassium 4 now (2) Hypomagnesemia: Resolved (3) Nausea & vomiting: Resolved after giving Suboxone. (4) Withdrawal from opioids: Improved after giving a dose of Suboxone. We accessed [facility] and Dr.Gregory Munoz located in [facility] [address] at [facility] with phone #[phone] prescribed on March 29, 2019 a dose of 3.14 mg of Suboxone for 7 days supply. Patient was advised to follow-up with Dr. Munoz as soon as pos sible after this discharge. No medication was given on the discharge. No opiates or narcotics were given to patient on the discharge. Total Time Total Time Spent Total Time Spent (In Minutes): over 30 min Discharge Plan Discharge Items Patient Disposition: Transfer [facility] Reason For Visit: INTRACTABLE VOMITING, OPIATE WITHDRAWAL Discharge Diagnosis: Opiate withdrawal Condition on Discharge: Good Health Concerns: addiction to heroin Activity: As commented below Lifting: Gradually increase as tolerated Non-emergency contact: Primary Care Provider Call non-emergency contact if: you have any medication questions, your symptoms worsen, your pain is not controlled, your pain is worsening, your pain is unusual for you, your pain is concerning for you, you have a fever, your temperature is above 101, your temperature is above 101.5 and your wound has increased redness Follow-up/Referrals: PCP,NO [Primary Care Provider] - Diet: Regular Addtl Attending Provider Instructions: Please follow up with Dr. Pradeep Munoz this week. [facility] Pending Studies at Discharge: No Stand-Alone Forms: My [facility] Skilled Items DNR: No Lines: None Urinary Catheter: No Medications and DC Order Discharge Orders: Discharge Order (Routine); Ordered 03/31/19 Ordered By: Sisi Young Admission Data Admit Date/Time: 03/30/19 01:32 Attending Provider: Sisi Young Admit Provider: Joni Sam Primary Care Provider: PCP,MARQUISE Other Providers: Joni Sam Other Interventions: Discharge Summary Assessment (RN) Last Done: 03/31/19 14:03 DC Date/Time DO NOT enter until pt leaves facility: 03/31/19 14:15
[2019-04-01 15:28] LABS: 7-Aminoclonaz, Confirm NEGATIVE NG/ML (CUTOFF=25); Cocaine, Urine 12000 NG/ML (CUTOFF=100); Codeine Urine NEGATIVE NG/ML (CUTOFF=50); Hydro-Alp Ur, GC/MS NEGATIVE NG/ML (CUTOFF=25); Hydrocodone Urine NEGATIVE NG/ML (CUTOFF=50); Hydromor Urine NEGATIVE NG/ML (CUTOFF=50); Hydroxyethylflurazepam, Conf NEGATIVE NG/ML (CUTOFF=50); Hydroxytriazolam NEGATIVE NG/ML (CUTOFF=50); Lorazepam, Ur GC/MS NEGATIVE NG/ML (CUTOFF=50); Marijuana Quant, GCMS Urine 147 NG/ML (CUTOFF=5); Morphine Urine 186 NG/ML (CUTOFF=50); Nordiazepam, Confirm 958 NG/ML (CUTOFF=50); Norhydrocodone Conf Ur NEGATIVE NG/ML (CUTOFF=50); Noroxycodone Urine NEGATIVE NG/ML (CUTOFF=50); Oxazepam Ur, GC/MS 689 NG/ML (CUTOFF=50); Oxycodone Urine NEGATIVE NG/ML (CUTOFF=50); Oxymorph Urine NEGATIVE NG/ML (CUTOFF=50); Temazepam, Confirm 1310 NG/ML (CUTOFF=50)
== END 2019-03-31 14:15 ==
LOC: ED 18:33 → 2N 18:33 → SUATTDRO 03-30 01:32 → 2N 03-30 02:02